=== PATIENT | male | born 1980 | race Caucasian/White ===

== ENCOUNTER 2016-08-25 18:05 | Emergency (ER) | payer OTHER ==
[~2016-08-25] VITALS: Wt 109.0 kg
[~2016-08-25 18:05] MED LIST: CIPR500T4 PO; LORA1TAB PO; METR500T PO; ONDA4TAB14 PO
[2016-08-25] MEDS ORDERED: ONDANSETRON 4 MG INJ IV STA (19:05)
[2016-08-25] MEDS ORDERED: morphine 4 MG/ML VIAL IV STA (19:05)
[2016-08-25] MEDS ORDERED: SOD CHLORIDE 0.9% 500 ML IV STA (19:05)
[2016-08-25] MEDS ORDERED: KETOROLAC 15 MG INJ IV STA (19:05)
[2016-08-25 19:30] LABS: ADD SCAN DIFF NO
[2016-08-25 19:39] LABS: ADD UMIC YES; URINE BILIRUBIN (Dip) NEGATIVE (NEGATIVE); URINE BLOOD (Dip) 3+ (NEGATIVE); URINE COLOR LT. YELLOW (YELLOW); URINE GLUCOSE (Dip) NEGATIVE (NEGATIVE); URINE KETONES (Dip) TRACE (NEGATIVE); URINE LEUKOCYTE ESTERASE (Dip) NEGATIVE (NEGATIVE); URINE NITRITE (Dip) NEGATIVE (NEGATIVE); URINE TOTAL PROTEIN (Dip) TRACE (NEGATIVE); URINE UROBILINOGEN (Dip) 0.2 E.U./dL (0.1-1.0)
[2016-08-25 19:40] LABS: POTASSIUM 4.4 mmol/L (3.5-5.1)
[2016-08-25 19:42] LABS: CREATININE 0.91 mg/dl (0.61-1.24)
[2016-08-25 19:47] LABS: BACTERIA,URINE FEW; URINE RBCS >200 /HPF (0)
[2016-08-25 19:48] LABS: MUCUS,URINE MODERATE
[2016-08-25 20:05] LABS: BASOPHIL # 0.1 10^3/ul (0.0-0.1); BASOPHILS % 0.3 % (0.0-2.0); EOSINOPHILS % 0.3 % (0.0-7.0); HEMATOCRIT 44.6 % (42.0-52.0); HEMOGLOBIN 14.5 g/dl (14.0-18.0); LYMPHOCYTES # 1.4 10^3/ul (0.8-2.9); LYMPHOCYTES % 9.5 % (15.0-51.0); MEAN CORPUSCULAR HEMOGLOBIN 30.3 pg (29.0-33.0); MEAN CORPUSCULAR HGB CONC 32.5 g/dl (32.0-37.0); MEAN CORPUSCULAR VOLUME 93.3 fl (82.0-101.0); MEAN PLATELET VOLUME 10.7 fl (7.4-10.4); MONOCYTE # 0.7 10^3/ul (0.3-0.9); NEUTROPHIL # 12.2 10^3/ul (1.6-7.5); NEUTROPHILS % 84.3 % (39.0-77.0); PLATELET COUNT 249 10^3/UL (140-415); RED BLOOD COUNT 4.78 10^6/ul (4.70-6.10); RED CELL DISTRIBUTION WIDTH 13.2 % (11.5-14.5); WHITE BLOOD COUNT 14.5 10^3/ul (4.8-10.8)
[2016-08-25] MEDS ORDERED: TAMS-14 PO (20:15)
[2016-08-25] MEDS ORDERED: ONDA4TAB14 PO (20:15)
[2016-08-25] MEDS ORDERED: IBUP800T25 PO (20:15)
[2016-08-25] MEDS ORDERED: HYDR-902 PO (20:15)
--- NOTE | 2016-08-25 20:19 | ERD ---
ER Documentation Chief Complaint Date/Time DATE: 08/25/16 TIME: 20:16 Chief Complaint LEFT FLANK PAIN FOR THE PAST FEW HOURS. N/V. MILD DYSURIA AND RETENTION HPI Pleasant male with a history of kidney stones who presents with left flank pain that is colicky radiating to the left lower quadrant for several hours. He describes moderate to severe pain that is intermittent. He states this feels exactly like kidney stone in the past that he has passed spontaneously. He noted some difficulty with urination earlier today but has been able to urinate here in the emergency room. No fevers or chills. No testicular pain. ROS All systems reviewed and are negative except as per history of present illness. Medications Home Meds Active Scripts Ondansetron (Ondansetron Odt) 4 Mg Tab.rapdis, 4 MG PO Q6H Y for NAUSEA AND/OR VOMITING, #10 TAB Prov:SANDER WORTHINGTON MD 08/25/16 Hydrocodone/Acetaminophen (Vernon 10-325 Tablet) 1 Each Tablet, 1 TAB PO Q6H Y for PAIN, #7 TAB Prov:SANDER WORTHINGTON MD 08/25/16 Tamsulosin Hcl* (Flomax*) 0.4 Mg Cap.er.24h, 0.4 MG PO DAILY for 7 Days, #7 CAP Prov:SANDER WORTHINGTON MD 08/25/16 Ibuprofen* (Motrin*) 800 Mg Tab, 800 MG PO Q6H Y for PAIN AND OR ELEVATED TEMP, #30 TAB Prov:SANDER WORTHINGTON MD 08/25/16 Discontinued Scripts Ondansetron (Ondansetron Odt) 4 Mg Tab.rapdis, 4 MG PO Q8 Y for NAUSEA AND/OR VOMITING, #20 TAB Prov:RIP PALOMO NP 05/26/16 Ondansetron (Ondansetron Odt) 4 Mg Tab.rapdis, 4 MG PO Q6H Y for NAUSEA AND/OR VOMITING, #10 TAB Prov:YURI AC 05/05/16 Metronidazole* (Flagyl*) 500 Mg Tablet, 500 MG PO TID for 7 Days, TAB Prov:YURI AC 05/05/16 Ciprofloxacin Hcl* (Ciprofloxacin Hcl*) 500 Mg Tablet, 500 MG PO BID for 7 Days , TAB Prov:YURI AC. 05/05/16 Lorazepam* (Lorazepam*) 1 Mg Tablet, 1 MG PO Q8H Y for ANXIETY, #10 TAB Prov:YURI AC. 05/05/16 Allergies Allergies: Coded Allergies: Penicillins (Verified Allergy, Unknown, 08/25/16) PMhx/Soc History of Surgery: No Anesthesia Reaction: No Hx Neurological Disorder: No Hx Respiratory Disorders: No Hx Cardiac Disorders: No Hx Psychiatric Problems: No Hx Alcohol Use: No Hx Substance Use: Yes (marijuana occasionally,last used 07/27/2016) Hx Tobacco Use: Yes (former smoker) Smoking Status: Former smoker FmHx Family History: No diabetes Physical Exam Vitals Vital Signs Date Time Temp Pulse Resp B/P Pulse Ox O2 Delivery O2 Flow Rate FiO2 08/25/16 18:09 97.2 78 20 170/85 98 Physical Exam General: Well developed, well nourished, no acute distress Head: Normocephalic, atraumatic. Eyes: Pupils equally reactive, EOM intact ENT: Moist mucous membranes Neck: Supple, no lymphadenopathy Respiratory: Lungs clear bilaterally, no distress Cardiovascular: RRR, no murmurs, rubs, or gallops Abdominal: Soft, non-tender, non-distended, no peritoneal signs : No inguinal hernia MSK: No edema, no unilateral swelling, 5/5 strength Neurologic: Alert and oriented, moving all extremities, normal speech, no focal weakness, no cerebellar signs Skin: No rash Psych: Normal mood Result Diagram: 08/25/16 1900 08/25/16 1900 Results 24 hrs Laboratory Tests Test 08/25/16 19:00 08/25/16 19:20 Anion Gap 19 Basophils # 0.110^3/ul Basophils % 0.3% Blood Urea Nitrogen 23mg/dl Calcium Level 10.0mg/dl Carbon Dioxide Level 26mmol/L Chloride Level 105mmol/L Creatinine 0.91mg/dl Eosinophils # 0.010^3/ul Eosinophils % 0.3% Glucose Level 100mg/dl Hematocrit 44.6% Hemoglobin 14.5g/dl Lymphocytes # 1.410^3/ul Lymphocytes % 9.5% Mean Corpuscular Hemoglobin 30.3pg Mean Corpuscular Hemoglobin Concent 32.5g/dl Mean Corpuscular Volume 93.3fl Mean Platelet Volume 10.7fl Monocytes # 0.710^3/ul Monocytes % 5.0% Neutrophils # 12.210^3/ul Neutrophils % 84.3% Nucleated Red Blood Cells # 0.010^3/ul Nucleated Red Blood Cells % 0.0/100WBC Platelet Count 83653^3/UL Potassium Level 4.4mmol/L Red Blood Count 4.7810^6/ul Red Cell Distribution Width 13.2% Sodium Level 146mmol/L White Blood Count 14.510^3/ul Urine Bacteria FEW Urine Bilirubin NEGATIVE Urine Clarity SLIGHTLY CLOUDY Urine Color LT. YELLOW Urine Epithelial Cells OCCASIONAL Urine Glucose NEGATIVE% Urine Hemoglobin 3+ Urine Ketones TRACE Urine Leukocyte Esterase NEGATIVE Urine Microscopic RBC >200/HPF Urine Microscopic WBC 0-2/HPF Urine Mucus MODERATE Urine Nitrite NEGATIVE Urine Specific [place] >=1.030 Urine Total Protein TRACE Urine Urobilinogen 0.2 E.U./dL Urine pH 6.0 Current Medications Medications (Trade) Dose Ordered Sig/Mary Route PRN Reason Start Time Stop Time Status Last Admin Dose Admin Sodium Chloride (NS) 500 ml @ 500 mls/hr Q1H STAT IV 08/25/16 19:05 08/25/16 20:04 DC 08/25/16 19:27 Morphine Sulfate (morphine) 4 mg ONCE STAT IV 08/25/16 19:05 08/25/16 19:06 DC 08/25/16 19:27 Ondansetron HCl (Zofran Inj) 4 mg ONCE STAT IV 08/25/16 19:05 08/25/16 19:06 DC 08/25/16 19:27 Ketorolac Tromethamine (Toradol) 15 mg ONCE STAT IV 08/25/16 19:05 08/25/16 19:06 DC 08/25/16 19:27 Procedures/MDM - LAB INTERPRETATION: Slight leukocytosis noted to be expected, no renal failure, no infection MEDICAL DECISION MAKING: The patient has signs and symptoms very consistent with acute ureteral colic. The patient has a history of kidney stones. He is able to urinate, stones visualized in the urine today. The patient still has mild pain. At this time no evidence of infection or renal failure no evidence of intractable pain. No indication for repeat CT imaging. Risks outweigh the benefits. ER COURSE: The patient received IV fluids, pain control medication. The patient has resolution of symptoms. Outpatient urology follow-up is recommended. Return precautions including fever or intractable pain were discussed. I kept the patient and/or family informed of laboratory and diagnostic imaging results throughout the emergency room course. DISPOSITION PLAN: We discussed follow up with the patient's primary care doctor within 24 to 48 hours as needed. We also discussed return to the emergency room for worsening symptoms or worsening condition. Outpatient referral: Urology Discharge Medications: Vernon, Zofran, Motrin, Flomax We discussed the use of narcotics including avoidance of operating heavy machinery and driving as well as its addictive properties. Departure Diagnosis: Primary Impression: Ureteral colic Additional Impression: Left flank pain Condition: Stable Patient Instructions: Kidney Stone W/ Colic Referrals: AISHA LEO MD Additional Instructions: Call your primary care doctor TOMORROW for an appointment during the next 1 WEEK.Tell the medical records secretary that you were referred from this facility.See the doctor sooner or return here if your condition worsens before your appointment time. SANDER WORTHINGTON MD Aug 25, 2016 20:18
[2016-08-25 20:56] VITALS: BP 140/78; PULSE 75; RESP 20; TEMP 97.7
== END 2016-08-25 20:56 | disposition home or self-care (01) ==
LOC: E/R 18:05
DX: N23 Unspecified renal colic (principal)
CPT/HCPCS: 36415; 80048; 81001; 85025; 87086; 96374; 96375; J1885; J2270; J2405; J7040; Z7502; 81003

== ENCOUNTER 2016-12-02 15:30 | Emergency (ER) | payer MEDICAID, OTHER ==
[~2016-12-02] VITALS: Ht 185.4 cm; Wt 113.0 kg
[~2016-12-02 15:30] MED LIST changes: -CIPR500T4 PO; +HYDR-902 PO; +IBUP800T25 PO; -LORA1TAB PO; -METR500T PO; +TAMS-14 PO
[2016-12-02 15:36] VITALS: Ht 185.4 cm; Wt 113.0 kg
--- NOTE | 2016-12-02 15:57 | ERA ---
ER Documentation Chief Complaint Date/Time DATE: 12/02/16 TIME: 15:57 Chief Complaint Right flank pain HPI Patient is a 36-year-old male, presenting to the ER because of acute right flank pain that began yesterday, worse today, associated with vomiting mostly mucus, complains of loose bowel movement He denies fever, chills, neck pain, chest pain, dysuria, has similar symptoms previously. He does not smoke nor drink Past medical history: History of kidney stone Past surgical history: None ROS All systems reviewed and are negative except as per history of present illness. Medications Home Meds Active Scripts Tamsulosin Hcl* (Flomax*) 0.4 Mg Cap.er.24h, 0.4 MG PO QPM, #15 CAP Prov:BRENDON CUBA MD 12/02/16 Ondansetron (Ondansetron Odt) 4 Mg Tab.rapdis, 4 MG PO Q6H Y for NAUSEA AND/OR VOMITING, #10 TAB Prov:BRENDON CUBA MD 12/02/16 Hydrocodone/Acetaminophen ([place] 10-325 Tablet) 1 Each Tablet, 1 TAB PO Q6H Y for PAIN, #7 TAB Prov:BRENDON CUBA MD 12/02/16 Ondansetron (Ondansetron Odt) 4 Mg Tab.rapdis, 4 MG PO Q6H Y for NAUSEA AND/OR VOMITING, #10 TAB Prov:SANDER WORTHINGTON MD 08/25/16 Hydrocodone/Acetaminophen ([place] 10-325 Tablet) 1 Each Tablet, 1 TAB PO Q6H Y for PAIN, #7 TAB Prov:SANDER WORTHINGTON MD 08/25/16 Tamsulosin Hcl* (Flomax*) 0.4 Mg Cap.er.24h, 0.4 MG PO DAILY for 7 Days, #7 CAP Prov:SANDER WORTHINGTON MD 08/25/16 Ibuprofen* (Motrin*) 800 Mg Tab, 800 MG PO Q6H Y for PAIN AND OR ELEVATED TEMP, #30 TAB Prov:SANDER WORTHINGTON MD 08/25/16 Allergies Allergies: Coded Allergies: Penicillins (Verified Allergy, Unknown, 08/25/16) PMhx/Soc History of Surgery: No Anesthesia Reaction: No Hx Neurological Disorder: No Hx Respiratory Disorders: No Hx Cardiac Disorders: No Hx Psychiatric Problems: No Hx Alcohol Use: No Hx Substance Use: Yes (marijuana occasionally,last used 07/27/2016) Hx Tobacco Use: Yes (former smoker) Physical Exam Vitals Vital Signs Date Time Temp Pulse Resp B/P Pulse Ox O2 Delivery O2 Flow Rate FiO2 12/02/16 15:36 97.0 66 18 158/79 99 Physical Exam Const: No acute distress. Head: Atraumatic. Eyes: Normal Conjunctiva. ENT: Normal External Ears, Nose and Mouth. Neck: Full range of motion. No meningismus. Resp: Clear to auscultation bilaterally. Cardio: Regular rate and rhythm. Abd: Soft, non distended, normal bowel sounds, moderate right flank tenderness, no right lower quadrant, right upper quadrant, rigidity, rebound tenderness Skin: No petechiae or rashes. Back: No midline or flank tenderness. Ext: No cyanosis, or edema. Neur: Awake and alert. No focal deficit Psych: Normal Mood and Affect. Result Diagram: 12/02/16 1635 12/02/16 1635 Results 24 hrs Laboratory Tests Test 12/02/16 16:25 12/02/16 16:35 Bedside Urine pH (LAB) 5.5 Bedside Urine Protein (LAB) 1+ Bedside Urine Glucose (UA) Negative Bedside Urine Ketones (LAB) Negative Bedside Urine Blood 3+ Bedside Urine Nitrite (LAB) Negative Bedside Urine Leukocyte Esterase (L Negative White Blood Count 16.310^3/ul Red Blood Count 4.6910^6/ul Hemoglobin 14.5g/dl Hematocrit 43.1% Mean Corpuscular Volume 91.9fl Mean Corpuscular Hemoglobin 30.9pg Mean Corpuscular Hemoglobin Concent 33.6g/dl Red Cell Distribution Width 12.9% Platelet Count 82525^3/UL Mean Platelet Volume 11.4fl Neutrophils % 84.4% Lymphocytes % 9.6% Monocytes % 4.1% Eosinophils % 0.7% Basophils % 0.4% Nucleated Red Blood Cells % 0.0/100WBC Neutrophils # 13.710^3/ul Lymphocytes # 1.610^3/ul Monocytes # 0.710^3/ul Eosinophils # 0.110^3/ul Basophils # 0.110^3/ul Nucleated Red Blood Cells # 0.010^3/ul Sodium Level 142mmol/L Potassium Level 4.6mmol/L Chloride Level 104mmol/L Carbon Dioxide Level 26mmol/L Anion Gap 17 Blood Urea Nitrogen 17mg/dl Creatinine 1.19mg/dl Glucose Level 93mg/dl Calcium Level 9.9mg/dl Total Bilirubin 0.1mg/dl Direct Bilirubin 0.00mg/dl Indirect Bilirubin 0.1mg/dl Aspartate Amino Transf (AST/SGOT) 17IU/L Alanine Aminotransferase (ALT/SGPT) 26IU/L Alkaline Phosphatase 93IU/L Total Protein 8.1g/dl Albumin 5.3g/dl Globulin 2.80g/dl Albumin/Globulin Ratio 1.89 Lipase 58U/L Current Medications Medications (Trade) Dose Ordered Sig/Mary Route PRN Reason Start Time Stop Time Status Last Admin Dose Admin Morphine Sulfate (morphine) 4 mg ONCE STAT IV 12/02/16 16:07 12/02/16 16:08 DC 12/02/16 16:30 Ondansetron HCl (Zofran Inj) 4 mg ONCE STAT IV 12/02/16 16:07 12/02/16 16:08 DC 12/02/16 16:30 Ketorolac Tromethamine (Toradol) 30 mg ONCE STAT IV 12/02/16 16:07 12/02/16 16:08 DC 12/02/16 16:29 Ondansetron HCl (Zofran Inj) 4 mg ONCE STAT IV 12/02/16 16:38 12/02/16 16:39 DC 12/02/16 16:42 Procedures/[place] [id number] Radiology Main Line: [phone] DIAGNOSTIC IMAGING REPORT Patient: JIE MILLER : 1980 Age: 36 Sex: M MR #: [id number] DOS: 12/02/16 1607 Ordering MD: BRENDON CUBA MD Location: [facility] Room/Bed: PROCEDURE: CT Abdomen and Pelvis without contrast. CLINICAL INDICATION: Abdominal pain TECHNIQUE: CT of the abdomen and pelvis was performed on a multi-detector scanner without IV contrast. Coronal and sagittal images were reformatted from the axial data set. One or more of the following dose reduction techniques were used: automated exposure control, adjustment of the mA and/or kV according to patient size, use of iterative reconstruction technique. CTDI = 20.99 mGy. DLP = 1365.51 mGy-cm. COMPARISON: CT, 05/05/2016 FINDINGS: CT abdomen: The lung bases are clear. The heart size is normal, without pericardial effusion. The liver is fatty infiltrated, without evidence of focal mass. Gallbladder, biliary tree, pancreas, spleen, adrenal glands and left kidney are unremarkable. Obstructive 5 mm calculus is present within the distal right ureter (3-162), 1 cm proximal to the UVJ. There is mild right hydroureteronephrosis. Small hiatal hernia is noted. The stomach is otherwise grossly unremarkable. The aorta is of normal caliber. There is no retroperitoneal lymphadenopathy. The lakesha hepatis region is clear. CT pelvis: No bowel obstruction, free intraperitoneal air or abscess is identified. The appendix is well visualized and normal. Sigmoid diverticulosis is seen without diverticulitis. There is no colitis. Urinary bladder is grossly unremarkable. No pelvic mass, free fluid or lymphadenopathy is identified. The surrounding osseous structures are remarkable for degenerative spondylosis of the spine. No osteolytic or osteoblastic lesion is detected. IMPRESSION: 1. Obstructive 5 mm calculus is present within the distal right ureter, causing mild hydroureteronephrosis. 2. There is mild hepatic steatosis. 3. Small hiatal hernia is present. 4. Sigmoid diverticulosis is seen without diverticulitis. 5. No mass or lymphadenopathy is identified. RPTAT: HH .Gary Weaver MD, Date Time Electronically viewed and signed by .Gary Weaver MD, on 12/02/2016 16: 34 .R/ CC: BRENDON CUBA MD MEDICAL MAKING DECISION: The patient is a 36-year-old male, presenting with acute right ureterolithiasis. He was treated with 1 L normal saline, morphine 4 mg IV, Toradol 30 mg IV for pain,, Zofran 4 mg IV 2 for nausea with good response. The differential diagnoses considered include but are not limited to cholelithiasis, cholecystitis, cystitis, pancreatitis, hepatitis, gastritis, peptic ulcer disease, gastric ulcer, appendicitis, diverticulitis, cholangitis, choledocholithiasis, partial small bowel obstruction. Departure Diagnosis: Primary Impression: Ureterolithiasis Condition: Good Comments He was discharged with Henderson and Zofran and Flomax I discussed the findings with the patient. I advised the patient to follow-up with the on-call urologist Dr. Becerra in about 1-2 days, sooner if needed and return if any concern. The patient's blood pressure was elevated (>120/80) but appears stable without evidence of hypertension emergency or urgency. The patient was counseled about the risks of hypertension and urged to pursue outpatient monitoring and therapy within a week with their primary care physician. BRENDON CUBA MD Dec 02, 2016 15:57
[2016-12-02] MEDS ORDERED: ONDANSETRON 4 MG INJ IV STA ×2 (16:07→16:38)
[2016-12-02] MEDS ORDERED: KETOROLAC 30 MG INJ IV STA (16:07)
[2016-12-02] MEDS ORDERED: morphine 4 MG/ML VIAL IV STA (16:07)
[2016-12-02 16:21] LABS: URINE BLOOD (Dip) POC 3+ (NEGATIVE)
--- NOTE | 2016-12-02 16:34 | RADRPT ---
PROCEDURE: CT Abdomen and Pelvis without contrast. CLINICAL INDICATION: Abdominal pain TECHNIQUE: CT of the abdomen and pelvis was performed on a multi-detector scanner without IV contr ast. Coronal and sagittal images were reformatted from the axial data set. One or more of the foll owing dose reduction techniques were used: automated exposure control, adjustment of the mA and/or kV according to patient size, use of iterative reconstruction technique. CTDI = 20.99 mGy. DLP = 13 65.51 mGy-cm. COMPARISON: CT, 05/05/2016 FINDINGS: CT abdomen: The lung bases are clear. The heart size is normal, without pericardial effusion. The liver is fat ty infiltrated, without evidence of focal mass. Gallbladder, biliary tree, pancreas, spleen, adrena l glands and left kidney are unremarkable. Obstructive 5 mm calculus is present within the distal r ight ureter (3-162), 1 cm proximal to the UVJ. There is mild right hydroureteronephrosis. Small hi atal hernia is noted. The stomach is otherwise grossly unremarkable. The aorta is of normal caliber. There is no retroperitoneal lymphadenopathy. The lakesha hepatis reg ion is clear. CT pelvis: No bowel obstruction, free intraperitoneal air or abscess is identified. The appendix is well visua lized and normal. Sigmoid diverticulosis is seen without diverticulitis. There is no colitis. Uri nary bladder is grossly unremarkable. No pelvic mass, free fluid or lymphadenopathy is identified. The surrounding osseous structures are remarkable for degenerative spondylosis of the spine. No ost eolytic or osteoblastic lesion is detected. IMPRESSION: 1. Obstructive 5 mm calculus is present within the distal right ureter, causing mild hydroureterone phrosis. 2. There is mild hepatic steatosis. 3. Small hiatal hernia is present. 4. Sigmoid diverticulosis is seen without diverticulitis. 5. No mass or lymphadenopathy is identified. RPTAT: HH .Gary Weaver MD, MD Date Time Electronically viewed and signed by .Gary Weaver MD, MD on 12/02/2016 16:34 .R/
[2016-12-02 17:08] LABS: ADD SCAN DIFF NO
[2016-12-02 17:10] LABS: BASOPHIL # 0.1 10^3/ul (0.0-0.1); BASOPHILS % 0.4 % (0.0-2.0); EOSINOPHILS # 0.1 10^3/ul (0.0-0.5); EOSINOPHILS % 0.7 % (0.0-7.0); HEMATOCRIT 43.1 % (42.0-52.0); HEMOGLOBIN 14.5 g/dl (14.0-18.0); LYMPHOCYTES # 1.6 10^3/ul (0.8-2.9); LYMPHOCYTES % 9.6 % (15.0-51.0); MEAN CORPUSCULAR HEMOGLOBIN 30.9 pg (29.0-33.0); MEAN CORPUSCULAR HGB CONC 33.6 g/dl (32.0-37.0); MEAN CORPUSCULAR VOLUME 91.9 fl (82.0-101.0); MEAN PLATELET VOLUME 11.4 fl (7.4-10.4); MONOCYTE # 0.7 10^3/ul (0.3-0.9); MONOCYTES % 4.1 % (0.0-11.0); NEUTROPHIL # 13.7 10^3/ul (1.6-7.5); NEUTROPHILS % 84.4 % (39.0-77.0); PLATELET COUNT 248 10^3/UL (140-415); RED BLOOD COUNT 4.69 10^6/ul (4.70-6.10); RED CELL DISTRIBUTION WIDTH 12.9 % (11.5-14.5); WHITE BLOOD COUNT 16.3 10^3/ul (4.8-10.8)
[2016-12-02 17:32] LABS: ALBUMIN 5.3 g/dl (3.3-4.9); ALBUMIN/GLOBULIN RATIO 1.89; BILIRUBIN,INDIRECT 0.1 mg/dl (0-1.1); BILIRUBIN,TOTAL 0.1 mg/dl (0.2-1.3); CALCIUM 9.9 mg/dl (8.4-10.2); CREATININE 1.19 mg/dl (0.61-1.24); POTASSIUM 4.6 mmol/L (3.5-5.1); TOTAL PROTEIN 8.1 g/dl (6.1-8.1)
[2016-12-02] MEDS ORDERED: HYDR-902 PO (18:14)
[2016-12-02] MEDS ORDERED: ONDA4TAB14 PO (18:24)
[2016-12-02] MEDS ORDERED: TAMS-14 PO (18:34)
== END 2016-12-02 18:37 | disposition home or self-care (01) ==
LOC: FTE 15:30
DX: N20.1 Calculus of ureter (principal); Z87.891 Personal history of nicotine dependence
CPT/HCPCS: 36415; 74176; 80053; 81003; 83690; 85025; 96374; 96375; J1885; J2270; J2405; Z7502

== ENCOUNTER 2017-04-02 19:24 | Emergency (ER) | payer MEDICAID, OTHER ==
[~2017-04-02] VITALS: Ht 180.3 cm; Wt 117.5 kg
[2017-04-02 19:32] VITALS: Ht 180.3 cm; Wt 117.5 kg
[2017-04-02] MEDS ORDERED: KETOROLAC 60 MG INJ IM STA (21:21)
[2017-04-02] MEDS ORDERED: DIAZEPAM 5 MG TAB PO ONE (22:30)
[2017-04-02] MEDS ORDERED: IBUP-1542 PO (22:55)
[2017-04-02] MEDS ORDERED: DIAZ-90 PO (22:55)
[2017-04-02 23:11] VITALS: BP 142/72; PULSE 76; RESP 16
--- NOTE | 2017-04-02 23:18 | ERD ---
ER Documentation Chief Complaint Chief Complaint pain in the neck area back of his head with dizziness HPI 36-year-old male patient with no significant past medical history presents to the ED complaining of neck pain that started earlier today. Reports that when he moves his head, it worsens the neck pain. States that the pain radiates to his head. States that the sides of his neck muscles feel achy and spastic. Rates the pain a 8 out of 10. Denies any chest pain, shortness of breath, fever , chills, nausea, vomiting, weakness, numbness or tingling. Denies neck or head trauma. ROS All systems reviewed and are negative except as per history of present illness. Medications Home Meds Active Scripts Ibuprofen* (Motrin*) 600 Mg Tab, 600 MG PO Q6, #20 TAB take with food Prov:RAUL STEPHENS PA-C 04/02/17 Diazepam* (Valium*) 5 Mg Tablet, 5 MG PO Q8, #10 TAB Prov:RAUL STEPHENS PA-C 04/02/17 Tamsulosin Hcl* (Flomax*) 0.4 Mg Cap.er.24h, 0.4 MG PO QPM, #15 CAP Prov:BRENDON CUBA MD 12/02/16 Ondansetron (Ondansetron Odt) 4 Mg Tab.rapdis, 4 MG PO Q6H Y for NAUSEA AND/OR VOMITING, #10 TAB Prov:BRENDON CUBA MD 12/02/16 Hydrocodone/Acetaminophen (Ripon 10-325 Tablet) 1 Each Tablet, 1 TAB PO Q6H Y for PAIN, #7 TAB Prov:BRENDON CUBA MD 12/02/16 Ondansetron (Ondansetron Odt) 4 Mg Tab.rapdis, 4 MG PO Q6H Y for NAUSEA AND/OR VOMITING, #10 TAB Prov:SANDER WORTHINGTON MD 08/25/16 Hydrocodone/Acetaminophen (Ripon 10-325 Tablet) 1 Each Tablet, 1 TAB PO Q6H Y for PAIN, #7 TAB Prov:SANDER WORTHINGTON MD 08/25/16 Tamsulosin Hcl* (Flomax*) 0.4 Mg Cap.er.24h, 0.4 MG PO DAILY for 7 Days, #7 CAP Prov:SANDER WORTHINGTON MD 08/25/16 Ibuprofen* (Motrin*) 800 Mg Tab, 800 MG PO Q6H Y for PAIN AND OR ELEVATED TEMP, #30 TAB Prov:SANDER WORTHINGTON MD 08/25/16 Allergies Allergies: Coded Allergies: Penicillins (Verified Allergy, Unknown, 08/25/16) PMhx/Soc History of Surgery: No Anesthesia Reaction: No Hx Neurological Disorder: No Hx Respiratory Disorders: No Hx Cardiac Disorders: No Hx Psychiatric Problems: No Hx Alcohol Use: No Hx Substance Use: Yes (marijuana occasionally,last used 07/27/2016) Hx Tobacco Use: Yes (former smoker) Smoking Status: Never smoker Physical Exam Vitals Vital Signs Date Time Temp Pulse Resp B/P Pulse Ox O2 Delivery O2 Flow Rate FiO2 04/02/17 23:11 76 16 142/72 98 Room Air 04/02/17 19:32 98.6 82 20 154/76 98 Physical Exam Const: Kci-mne-oibcykjhe, well-nourished. In no acute distress. Head: Atraumatic, normocephalic Eyes: Normal Conjunctiva without injection. No purulent discharge. PERRLA. EOMI ENT: Normal external ear. Ear canal without erythema. Tympanic membrane pearly sunshine without effusion or bulging. Nasal canal clear with normal turbinates. Moist oropharynx without tonsillar exudates. Non-erythematous pharynx. Uvula midline. No drooling. No trismus. Neck: No cervical midline tenderness. Full range of motion. No meningismus. No cervical lymphadenopathy. No JVD. Tenderness to palpation of the bilateral trapezius muscles of the neck region. Resp: Clear to auscultation bilaterally. No wheezing, rhonchi, rales, or crackles. No accessory muscle use. No retractions. Cardio: Regular rate and rhythm. No murmurs, rubs or gallops. Abd: Soft, non tender, non distended. Normal bowel sounds. No palpable masses. No rebound tenderness. No guarding. Negative McBurney's Point. Negative Srivastava's Sign. Skin: Normal skin turgor. No petechiae or rashes Back: No midline tenderness. No CVA tenderness. Ext: No cyanosis, or edema. Distal pulses intact bilaterally. Neur: Awake and alert. Normal gait. Normal coordination. Cranial Nerves II- VII intact. Normal finger to nose. Muscle strength 5/5. Sensation intact. Psych: Normal Mood and Affect Results 24 hrs Current Medications Medications (Trade) Dose Ordered Sig/Mary Route PRN Reason Start Time Stop Time Status Last Admin Dose Admin Ketorolac Tromethamine (Toradol) 60 mg ONCE STAT IM 04/02/17 21:21 04/02/17 21:23 DC 04/02/17 21:49 Diazepam (Valium) 5 mg ONCE ONCE PO 04/02/17 22:30 04/02/17 22:31 DC 04/02/17 22:21 Procedures/MDM 28-year-old male patient with no significant past medical history presents to the ED complaining of bilateral neck muscle pain. Patient is afebrile and nontoxic-appearing. Patient is normal vital signs. Patient has tenderness palpation of the bilateral upper trapezius. Patient was given Toradol IM 60 mg and Valium 5 mg p.o. with improvement of his symptoms. Low suspicion for acute myocardial infarction, pneumothorax, pneumonia, cardiac tamponade, pulmonary embolism, pleural effusion, AAA, aortic dissection, Boerhaave's syndrome, cardiac dysrhythmias,meningitis, intracranial bleed, seizure, stroke, TIA or other emergent conditions. No tenderness palpation of the cervical midline spine. No indication for cervical neck x-ray or CT. The risks of radiation outweigh the benefits. Patient also obtained a CT of the brain without contrast in May 2016 which showed new no acute neurological abnormalities. Low suspicion for intracranial bleed, subarachnoid hemorrhage, meningitis, TIA , stroke, seizures, subdural hematoma, epidural hematoma, brain aneurysm, cavernous sinus thrombosis, or other emergent conditions. Discharge medications: Ibuprofen, Valium Follow up with primary care physician in 1-2 days. Instructed patient to return to the ED sooner for any worsening symptoms. Patient's questions were answered. Patient understood and agreed with discharge plan. Patient discharged stable. Departure Diagnosis: Primary Impression: Neck pain Condition: Stable Patient Instructions: Muscle Spasm, Your Neck Muscles, Neck Pain, No Trauma Referrals: COMMUNITY CLINICS YOU HAVE RECEIVED A MEDICAL SCREENING EXAM AND THE RESULTS INDICATE THAT YOU DO NOT HAVE A CONDITION THAT REQUIRES URGENT TREATMENT IN THE EMERGENCY DEPARTMENT. FURTHER EVALUATION AND TREATMENT OF YOUR CONDITION CAN WAIT UNTIL YOU ARE SEEN IN YOUR DOCTORS OFFICE WITHIN THE NEXT 1-2 DAYS. IT IS YOUR RESPONSIBILITY TO MAKE AN APPOINTMENT FOR FOLOW-UP CARE. IF YOU HAVE A PRIMARY DOCTOR --you should call your primary doctor and schedule an appointment IF YOU DO NOT HAVE A PRIMARY DOCTOR YOU CAN CALL OUR PHYSICIAN REFERRAL HOTLINE AT IF YOU CAN NOT AFFORD TO SEE A PHYSICIAN YOU CAN CHOSE FROM THE FOLLOWING [facility] [address] [facility] [address] [facility] [address] [facility] [address] [facility] [address] [facility]. [facility] [address] [facility]. [facility] YOU HAVE RECEIVED A MEDICAL SCREENING EXAM AND THE RESULTS INDICATE THAT YOU DO NOT HAVE A CONDITION THAT REQUIRES URGENT TREATMENT IN THE EMERGENCY DEPARTMENT. FURTHER EVALUATION AND TREATMENT OF YOUR CONDITION CAN WAIT UNTIL YOU ARE SEEN IN YOUR DOCTORS OFFICE WITHIN THE NEXT 1-2 DAYS. IT IS YOUR RESPONSIBILITY TO MAKE AN APPOINTMENT FOR FOLOW-UP CARE. IF YOU HAVE A PRIMARY DOCTOR --you should call your primary doctor and schedule and appointment IF YOU DO NOT HAVE A PRIMARY DOCTOR YOU CAN CALL OUR PHYSICIAN REFERRAL HOTLINE AT . IF YOU CAN NOT AFFORD TO SEE A PHYSICIAN YOU CAN CHOSE FROM THE FOLLOWING [facility]: [facility] [address] [place] [address] [facility] [address] [place] [address] [facility] + [facility] [address] [place] [address] [facility] Additional Instructions: FOLLOW UP WITH YOUR PRIMARY CARE PHYSICIAN TOMORROW.Return to this facility if you are not improving as expected. RAUL STEPHNES PA-C Apr 02, 2017 23:17
== END 2017-04-02 23:11 | disposition home or self-care (01) ==
LOC: FTE 19:24
DX: M54.2 Cervicalgia (principal)
CPT/HCPCS: 96372; J1885; Z7502; Z7610